=== PATIENT | female | born 1970 | race Caucasian/White ===

== ENCOUNTER 2017-12-21 14:05 | Outpatient (CLI) | payer BC | END 2017-12-21 14:06 | disposition home or self-care (01) | LOC: BICMAMMO 14:05 | PROVIDERS: ATTEND Family Medicine | DX: Z12.31 Encounter for screening mammogram for malignant neoplasm of breast (principal); R92.1 Mammographic calcification found on diagnostic imaging of breast; Z80.3 Family history of malignant neoplasm of breast | CPT/HCPCS: 77063; 77067 ==

== ENCOUNTER 2018-12-19 09:10 | Day surgery (SDC) | payer BC ==
[2018-12-18 09:29] VITALS: BMI 20.9
[2018-12-19 10:22] LABS: #Eosinphils 0.1 thou/uL (0.0-0.7); #Lymphocytes 1.6 thou/uL (1.20-3.40); #Monocytes 0.6 thou/uL (0.11-0.59); #Neutrophils 8.3 thou/uL (1.40-6.50); %Basophils 0.2 % (0.0-1.0); %Eosinophils 0.9 % (0.0-10.0); %Lymphocytes 15.3 % (21.0-51.0); %Monocytes 5.9 % (0.0-10.0); %Neutrophils 77.8 % (42.0-75.0); Hemoglobin 16.4 g/dL (12.0-16.0); Mean Corpuscular HGB CONC 33.9 g/dL (32.0-36.0); Mean Corpuscular Hemoglobin 32.9 pg (27.0-31.0); Mean Corpuscular Volume 97.1 fL (78.0-98.0); Mean Platelet Volume 7.4 fL (7.4-10.4); Platelet Count 186 thou/uL (130-400); RBC Distribution Width 11.6 % (11.5-14.5); Red Blood Cell (RBC) Count 4.99 mill/uL (4.20-5.40); White Blood Cell (WBC) Count 10.7 thou/uL (4.8-10.8)
[2018-12-19 10:32] LABS: BHCG - Serum Negative (NEGATIVE); Pregs Control Background? CLEAR/WHITE (CLR/WHITE); Pregs Control Bar Appear? YES (CONTROL BAR)
[2018-12-19] MEDS ORDERED: Fentanyl 100 MCG/2 ML VIAL ONE ×3 (10:46→13:33)
[2018-12-19] MEDS ORDERED: Midazolam HCl 2 mg/2 ml Vial ONE (10:46)
[2018-12-19] MEDS ORDERED: Bupivacaine HCl 0.5%/Epinephrine 1:200,000/PF 30 ml Vial ONE (11:15)
[2018-12-19] MEDS ORDERED: Clindamycin/D5W 600 mg/50 ml Premix Bag ONE (11:26)
[2018-12-19] MEDS ORDERED: Ketorolac Tromethamine 30 MG/ML VIAL IVP PRN (11:40)
[2018-12-19] MEDS ORDERED: Promethazine HCl 25 MG/ML VIAL IM PRN (11:40)
[2018-12-19] MEDS ORDERED: Ondansetron PF 4 MG/2 ML Vial IVP PRN (11:40)
[2018-12-19] MEDS ORDERED: HYDROcodone/Acetaminophen 10/325 mg Tablet PO PRN ×2 (11:40)
[2018-12-19] MEDS ORDERED: traMADol HCl 50 MG TAB PO PRN ×2 (11:40)
[2018-12-19] MEDS ORDERED: Zolpidem Tartrate 5 MG TAB PO PRN (11:40)
[2018-12-19] MEDS ORDERED: Ropivacaine 0.2% 550 ML 550 ML NERVE BLCK SCH (11:40)
[2018-12-19] MEDS ORDERED: Fentanyl 100 MCG/2 ML VIAL IV PRN (11:41)
--- NOTE | 2018-12-19 12:00 | RAD ---
RADIOGRAPH CHEST 2 VIEWS: DATE: 12/19/18 HISTORY: 48-year-old female for preoperative clearance. FINDINGS: There is no pulmonary edema, pleural effusion, pneumothorax, or cardiomegaly. The only interval change compared to 07/28/16 is the current presence of a very small, infiltrate-lik e density at the base of the left lung on the frontal view, which could be subsegmental atelectasis o r scar. If the patient has cough or fever, then it could be pneumonia. It is probable located at the lingula. IMPRESSION: Small infiltrate-like density at base of left lung. See above comments. ciaran [] POS: CLAU
--- NOTE | 2018-12-19 13:23 | EKG ---
Test Reason : PREOP Blood Pressure : / mmHG Vent. Rate : 076 BPM Atrial Rate : 076 BPM P-R Int : 148 ms QRS Dur : 102 ms QT Int : 350 ms P-R-T Axes : 067 068 027 degrees QTc Int : 393 ms Normal sinus rhythm Normal ECG When compared with ECG of 04-JAN-2014 16:08, No significant change was found Confirmed by ARETHA CHAU, SRuel ([id number]) on 12/19/2018 1:23:23 PM Referred By: ARNALDO Confirmed By:DR. Roger CARIAS MD
[2018-12-19] MEDS ORDERED: HYDROcodone/Acetaminophen 5/325 mg Tablet ONE (15:11)
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
== END 2018-12-19 16:00 | disposition home or self-care (01) ==
LOC: SDC 09:10
PROVIDERS: ATTEND Orthopaedic Surgery
PROC: 0LQP0ZZ Repair Left Lower Leg Tendon, Open Approach (ICD-10-PCS; principal; 2018-12-19)
PROC: 3E0T3BZ Introduction of Anesthetic Agent into Peripheral Nerves and Plexi, Percutaneous Approach (ICD-10-PCS; principal; 2018-12-19)
DX: S86.012A Strain of left Achilles tendon, initial encounter (principal); F17.210 Nicotine dependence, cigarettes, uncomplicated; G89.18 Other acute postprocedural pain; Z88.0 Allergy status to penicillin; Z88.2 Allergy status to sulfonamides; Z91.040 Latex allergy status; Z88.8 Allergy status to other drugs, medicaments and biological substances; W16.512A Jumping or diving into swimming pool striking water surface causing other injury, initial encounter
CPT/HCPCS: 36415; 71046; 84703; 85025; 93005; 93010; A4306; J0670; J2250; J2795; J3010; J3490

== ENCOUNTER 2023-05-13 15:06 | Outpatient (CLI) | payer BC | END 2023-05-13 15:07 | disposition home or self-care (01) | LOC: BICMAMMO 15:06 | PROVIDERS: ATTEND Student in an Organized Health Care Education/Training Program | DX: Z12.31 Encounter for screening mammogram for malignant neoplasm of breast (principal); Z80.3 Family history of malignant neoplasm of breast | CPT/HCPCS: 77063; 77067 ==

== ENCOUNTER 2024-08-17 21:15 | Observation (INO) | payer BC ==
[2024-08-17 21:38] VITALS: BMI 27.5
[2024-08-17 22:59] LABS: Hemoglobin A1c 5.5 % (4.0-6.0)
[2024-08-17 23:02] LABS: Magnesium 2.1 mg/dL (1.6-2.6)
[2024-08-17 23:07] LABS: Troponin I Less than 0.010 ng/mL (< 0.028)
[2024-08-17] MEDS ORDERED: Acetaminophen 500 MG TAB PO PRN (23:46)
[2024-08-17] MEDS ORDERED: Nitroglycerin 0.4 MG TAB (25 Tab Bottle) SL PRN (23:47)
[2024-08-18] MEDS: Ketorolac Tromethamine 30 MG (1 mL) VIAL IVP PRN (00:12)
[2024-08-18 04:54] LABS: #Basophils 0.04 10x3/uL (0.0-0.2); %Basophils 0.6 % (0.0-1.0); %Eosinophils 2.2 % (0.0-10.0); %Lymphocytes 48.4 % (21.0-51.0); %Monocytes 7.5 % (0.0-10.0); %Neutrophils 41.1 % (42.0-75.0); Hematocrit 45.1 % (36.0-47.0); Hemoglobin 15.5 g/dL (12.0-16.0); Mean Corpuscular HGB CONC 34.4 g/dL (32.0-36.0); Mean Corpuscular Hemoglobin 31.8 pg (27.0-31.0); Mean Corpuscular Volume 92.6 fL (78.0-98.0); Mean Platelet Volume 10.1 fL (7.4-10.4); Platelet Count 200 10x3/uL (130-400); RBC Distribution Width 12.5 % (11.5-14.5); Red Blood Cell (RBC) Count 4.87 mill/uL (4.20-5.40)
[2024-08-18 05:17] LABS: Troponin I Less than 0.010 ng/mL (< 0.028)
[2024-08-18 06:23] LABS: Chloride 111 mmol/L (98-107); Potassium 3.7 mmol/L (3.5-5.1); Sodium 142 mmol/L (136-145)
[2024-08-18 06:24] LABS: Calcium 8.9 mg/dL (7.8-10.44); Glucose 91 mg/dL (70-105)
[2024-08-18 06:26] LABS: Anion Gap 15 mmol/L (10-20); Carbon Dioxide 20 mmol/L (22-29)
[2024-08-18 06:28] LABS: BUN (Urea Nitrogen) 14 mg/dL (9.8-20.1); Calc. Creatinine Clearance 133 mL/min (70-130); Estimated GFR 104
[2024-08-18] MEDS: Famotidine 20 MG TAB PO SCH (09:46)
[2024-08-18] MEDS ORDERED: Regadenoson 0.4 MG/5 ML SYRINGE ONE (10:10)
[2024-08-18 13:33] LABS: Bacteria/HPF Rare-Few HPF (None Seen); Bilirubin Negative (Negative); Blood, Urine 1+ (Negative); CAUTI Indications for Culture Pelvic or flank pain; Calcium Oxalate Crystals Rare HPF (None Seen); Clarity Turbid (Clear); Glucose, Urine (Dipstick) Normal (Negative); Ketone, Urine Negative (Negative); Leukocyte Negative Leu/uL (Negative); Nitrite Negative (Negative); Protein, Urine (Dipstick) Negative (Neg-Trace); Specific Gravity, Urine 1.015 (1.002-1.036); Urobilinogen Normal mg/dL (Less than 2); WBC/HPF 0-3 HPF (0-3)
[2024-08-18 13:34] LABS: Urine Culture Reflex No No
[2024-08-18 16:27] VITALS: BP 138/68; TEMP 98.2
== END 2024-08-18 16:27 | disposition home or self-care (01) ==
LOC: OBS 21:15
PROVIDERS: ADMIT Internal Medicine; ATTEND Internal Medicine
DX: R07.9 Chest pain, unspecified (principal); R20.2 Paresthesia of skin; E78.1 Pure hyperglyceridemia; F17.200 Nicotine dependence, unspecified, uncomplicated; Z90.89 Acquired absence of other organs; Z90.710 Acquired absence of both cervix and uterus; Z91.040 Latex allergy status; Z88.0 Allergy status to penicillin; Z88.2 Allergy status to sulfonamides; Z91.018 Allergy to other foods; Z88.8 Allergy status to other drugs, medicaments and biological substances; Z79.899 Other long term (current) drug therapy; I20.0 Unstable angina; F17.210 Nicotine dependence, cigarettes, uncomplicated
CPT/HCPCS: 36415; 71045; 78452; 80048; 80053; 81001; 83036; 83735; 84443; 84484; 85025; 85379; 93005; 93010; 93017; 94760; 96372; 96374; 96376; A9502; G0378; J1650; J1885; J2785